=== PATIENT | female | born 1990 | race Two or more races ===

== ENCOUNTER 2024-01-14 15:05 | Outpatient (CLI) | payer OTHER | END 2024-01-14 15:13 | disposition home or self-care (01) | LOC: MAMO-SONO 15:05 | PROVIDERS: ATTEND Obstetrics & Gynecology Gynecology | DX: N63 Unspecified lump in breast (principal); N64.4 Mastodynia; N60.11 Diffuse cystic mastopathy of right breast; Z12.31 Encounter for screening mammogram for malignant neoplasm of breast ==